=== PATIENT | female | born 1985 | race Asian ===

== ENCOUNTER 2018-06-18 12:52 | Emergency (ER) | payer BC ==
[~2018-06-18] VITALS: Ht 167.6 cm; Wt 72.1 kg
[2018-06-18 13:08] VITALS: BP_SYST 129
[2018-06-18] MEDS ORDERED: DIPHENHYDRAMINE INJ 50 MG/ML VIAL IVP ONE (13:45)
[2018-06-18] MEDS ORDERED: NACL 0.9% 1,000 ML IV ONE (13:45)
[2018-06-18] MEDS ORDERED: PROCHLORPERAZINE EDISYLATE 10 MG/2 ML VIAL IVP ONE (13:45)
[2018-06-18 13:54] LABS: BILIRUBIN,URINE NEGATIVE (NEGATIVE); BLOOD, URINE NEGATIVE (NEGATIVE); CLARITY/URINE CLEAR (CLEAR); COLOR,URINE YELLOW (YELLOW); GLUCOSE,URINE NEGATIVE (NEGATIVE); KETONES,URINE NEGATIVE (NEGATIVE); LEUKOCYTE ESTERASE ,URINE NEGATIVE (NEGATIVE); NITRITE, URINE NEGATIVE (NEGATIVE); PROTEIN URINE NEGATIVE (NEGATIVE); UROBILINOGEN,URINE 0.2 (0.2-1.0)
[2018-06-18 14:34] VITALS: BP_SYST 122
== END 2018-06-18 14:34 | disposition home or self-care (01) ==
LOC: SED 12:52
DX: R51 Headache (principal); R11.2 Nausea with vomiting, unspecified; R03.0 Elevated blood-pressure reading, without diagnosis of hypertension
CPT/HCPCS: 81003; 96361; 96374; 96375; 99284; J0780; J1200; J7030